=== PATIENT | male | born 1960 | race Caucasian/White ===

== ENCOUNTER → 2023-10-22 | Outpatient (CLI) | payer OTHER, BC ==
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
== END | disposition home or self-care (01) ==
LOC: RAD 10:56
PROVIDERS: ATTEND Nurse Practitioner
DX: M95.4 Acquired deformity of chest and rib (principal); S22.42XD Multiple fractures of ribs, left side, subsequent encounter for fracture with routine healing